=== PATIENT | female | born 2000 | race Caucasian/White ===

== ENCOUNTER 2018-12-17 01:10 | Inpatient (IN) | payer OTHER ==
[2018-12-17 03:08] LABS: RUPTURE FETAL MEMBRANES NEGATIVE (NEGATIVE)
[2018-12-17] MEDS ORDERED: LACTATED RINGER'S 1,000 ML IV (04:26)
[2018-12-17] MEDS ORDERED: BUTORPHANOL 2 MG INJ IV ×2 (04:30)
[2018-12-17] MEDS ORDERED: MISOPROSTOL 200 MCG TAB PR (04:30)
[2018-12-17] MEDS ORDERED: LIDOCAINE 1% (MPF) 30 ML INJ INJ (04:30)
[2018-12-17] MEDS ORDERED: METHYLERGONOVINE 0.2 MG INJ IM (04:30)
[2018-12-17] MEDS ORDERED: CARBOPROST 250 MCG INJ IM (04:30)
[2018-12-17] MEDS ORDERED: IBUPROFEN 600 MG TAB PO (04:30)
[2018-12-17] MEDS ORDERED: OXYTOCIN 30 UNITS/LR 500 ML IV (04:30)
[2018-12-17] MEDS: LACTATED RINGER'S 1,000 ML IV ×4 (05:41→20:59)
[2018-12-17 06:24] LABS: ADD MAN DIFF? NO
[2018-12-17 06:29] LABS: BASOPHILS % 0.3 % (0.0-2.0); EOSINOPHILS # 0.1 10^3/ul (0.0-0.5); EOSINOPHILS % 0.7 % (0.0-7.0); HEMATOCRIT 26.8 % (37.0-47.0); HEMOGLOBIN 8.4 g/dl (12.0-16.0); LYMPHOCYTES # 2.7 10^3/ul (0.8-2.9); LYMPHOCYTES % 27.1 % (18.0-55.0); MEAN CORPUSCULAR HEMOGLOBIN 21.2 pg (29.0-33.0); MEAN CORPUSCULAR HGB CONC 31.3 g/dl (32.0-37.0); MEAN CORPUSCULAR VOLUME 67.5 fl (72.0-104.0); MEAN PLATELET VOLUME 10.8 fl (7.4-10.4); MONOCYTES % 9.6 % (0.0-13.0); NEUTROPHIL # 6.2 10^3/ul (1.6-7.5); NEUTROPHILS % 61.9 % (30.0-74.0); PLATELET COUNT 253 10^3/UL (140-415); RED BLOOD COUNT 3.97 10^6/ul (4.20-5.40); RED CELL DISTRIBUTION WIDTH 16.1 % (11.5-14.5)
[2018-12-17 06:29] LABS: WHITE BLOOD COUNT 10.1 10^3/ul (4.8-10.8)
[2018-12-17 06:48] LABS: INR 0.86; PROTIME 11.8 Sec (11.9-14.9); PT RATIO 0.9
[2018-12-17 06:49] LABS: PARTIAL THROMBOPLASTIN TIME 26.8 Sec (23.0-35.0)
[2018-12-17] MEDS: OXYTOCIN 30 UNITS/LR 500 ML IV (08:09)
[2018-12-17 15:20] LABS: RAPID PLASMA REAGIN NONREACTIVE (NR)
[2018-12-17] MEDS ORDERED: DIPHENHYDRAMINE 50 MG INJ IV (17:30)
[2018-12-17] MEDS ORDERED: NALOXONE (0.4 MG/ML) INJ IV (17:30)
[2018-12-17] MEDS: ONDANSETRON 4 MG INJ IV ×2 (23:10→23:14)
[2018-12-17] MEDS ORDERED: AMPICILLIN 2 GM/NS (PMX) 100 ML (23:22)
[2018-12-17] MEDS ORDERED: CLINDAMYCIN 900 MG/D5W (PMX) 50 ML IVPB (23:43)
[2018-12-17] MEDS: CLINDAMYCIN 900 MG/D5W (PMX) 50 ML IVPB (23:46)
[2018-12-17] MEDS: AMPICILLIN 2 GM/NS (PMX) 100 ML IVPB (23:47)
[2018-12-18] MEDS: GENTAMICIN 80 MG/NS (PMX) 50 ML IVPB (00:33)
[2018-12-18] MEDS: FENTAnyl 2MCG/ML-ROPIV 0.2% 100 ML BAG EPI (00:34)
[2018-12-18] MEDS: ACETAMINOPHEN 500 MG TAB PO ×2 (00:36→09:12)
[2018-12-18] MEDS ORDERED: PHENYLephrine 10 MG INJ (01:53)
[2018-12-18] MEDS ORDERED: MISOPROSTOL 200 MCG TAB (02:20)
[2018-12-18] MEDS ORDERED: FENTAnyl 50 MCG/ML VIAL (02:21)
[2018-12-18] MEDS ORDERED: METOCLOPRAMIDE 10 MG INJ (02:41)
[2018-12-18] MEDS ORDERED: MIDAZOLAM 1 MG/ML 2 ML INJ (02:43)
[2018-12-18] MEDS ORDERED: morphine SULFATE/PF (10 MG/10 ML) INJ (03:11)
[2018-12-18] MEDS: LACTATED RINGER'S 1,000 ML IV (03:15)
[2018-12-18] MEDS ORDERED: MISOPROSTOL 200 MCG TAB PR (03:30)
[2018-12-18] MEDS ORDERED: DIPHENHYDRAMINE 50 MG INJ IV (03:30)
[2018-12-18] MEDS ORDERED: CARBOPROST 250 MCG INJ IM (03:30)
[2018-12-18] MEDS ORDERED: ONDANSETRON 4 MG INJ IV ×2 (03:30)
[2018-12-18] MEDS ORDERED: ACETAMINOPHEN 325 MG TAB PO (03:30)
[2018-12-18] MEDS ORDERED: morphine 2 MG INJ IV (03:30)
[2018-12-18] MEDS ORDERED: BISACODYL 10 MG SUPP PR (03:30)
[2018-12-18] MEDS ORDERED: OXYTOCIN 30 UNITS/LR 500 ML IV (03:30)
[2018-12-18] MEDS ORDERED: LANOLIN HPA 1 PKT TOP (03:30)
[2018-12-18] MEDS ORDERED: IBUPROFEN 600 MG TAB PO (03:30)
[2018-12-18] MEDS ORDERED: NALOXONE (0.4 MG/ML) INJ IV (03:30)
[2018-12-18] MEDS ORDERED: MAGNESIUM HYDROXIDE 30ML CUP PO (03:30)
[2018-12-18] MEDS ORDERED: METHYLERGONOVINE 0.2 MG INJ IM (03:30)
[2018-12-18] MEDS ORDERED: CEFAZOLIN 1 GM/50 ML (PMX) 50 ML IVPB (03:30)
[2018-12-18] MEDS: ACETAMINOPHEN 1000MG/100ML IV 100 ML IVPB (04:34)
[2018-12-18] MEDS: PIPER-TAZO 3.375 GM IV (PMX) 100 ML IVPB ×3 (04:40→17:41)
[2018-12-18] MEDS: KETOROLAC 30 MG INJ IV ×3 (05:15→20:38)
[2018-12-18] MEDS: OXYTOCIN 30 UNITS/LR 500 ML IV ×4 (05:52→23:35)
[2018-12-18] MEDS ORDERED: LIDOCAINE 1.5%/EPI MPF (SDV) 30 ML VIAL (07:00)
[2018-12-18] MEDS ORDERED: OXYTOCIN 30 UNITS/LR 500 ML BAG IV (07:00)
[2018-12-19] MEDS: OXYCODONE/ACETAMINOPHEN (5/325) TAB PO ×4 (04:31→21:41)
[2018-12-19] MEDS: PIPER-TAZO 3.375 GM IV (PMX) 100 ML IVPB ×4 (07:22→17:45)
[2018-12-19 08:23] LABS: ADD MAN DIFF? NO
[2018-12-19 08:28] LABS: ABNORMAL IP MESSAGE 1; BASOPHILS % 0.2 % (0.0-2.0); EOSINOPHILS # 0.1 10^3/ul (0.0-0.5); EOSINOPHILS % 0.3 % (0.0-7.0); HEMATOCRIT 20.3 % (37.0-47.0); LYMPHOCYTES # 1.8 10^3/ul (0.8-2.9); LYMPHOCYTES % 7.7 % (18.0-55.0); MEAN CORPUSCULAR HEMOGLOBIN 20.7 pg (29.0-33.0); MEAN CORPUSCULAR VOLUME 66.6 fl (72.0-104.0); MEAN PLATELET VOLUME 11.2 fl (7.4-10.4); MONOCYTE # 1.6 10^3/ul (0.3-0.9); MONOCYTES % 6.6 % (0.0-13.0); NEUTROPHIL # 20.1 10^3/ul (1.6-7.5); NEUTROPHILS % 84.2 % (30.0-74.0); PLATELET COUNT 226 10^3/UL (140-415); RED BLOOD COUNT 3.05 10^6/ul (4.20-5.40); RED CELL DISTRIBUTION WIDTH 16.9 % (11.5-14.5)
[2018-12-19 08:28] LABS: WHITE BLOOD COUNT 23.8 10^3/ul (4.8-10.8)
[2018-12-19 08:33] LABS: POSITIVE DIFF @See below
[2018-12-19 08:35] LABS: HEMOGLOBIN 6.3 g/dl (12.0-16.0)
[2018-12-19 08:36] LABS: PATH REVIEW? YES
[2018-12-19 08:58] LABS: ALANINE AMINOTRANSFERASE 64 IU/L (13-69); ALBUMIN 2.2 g/dl (3.3-4.9); ALBUMIN/GLOBULIN RATIO 0.78; ALKALINE PHOSPHATASE 203 IU/L (42-121); ANION GAP 3 (5-13); ASPARTATE AMINO TRANSFERASE 194 IU/L (15-46); BILIRUBIN,INDIRECT 0.3 mg/dl (0-1.1); BILIRUBIN,TOTAL 0.3 mg/dl (0.2-1.3); BLOOD UREA NITROGEN 8 mg/dl (7-20); CALCIUM 8.3 mg/dl (8.4-10.2); CARBON DIOXIDE 25 mmol/L (21-31); CHLORIDE 106 mmol/L (97-110); CREATININE 0.58 mg/dl (0.44-1.00); Estimated GFR > 60 mL/min (>60); GLUCOSE 109 mg/dl (70-220); POTASSIUM 3.8 mmol/L (3.5-5.1); SODIUM 134 mmol/L (135-144)
[2018-12-19 10:29] LABS: ANISOCYTOSIS 3+ (0-0); BAND NEUTROPHILS #M 3.5 10^3/ul (0.0-0.6); BAND NEUTROPHILS % (M) 15 % (0-10); HYPOCHROMASIA 1+ (0-0); LYMPHOCYTES #M 1.1 10^3/ul (0.8-2.9); LYMPHOCYTES % (M) 5 % (18-55); MICROCYTOSIS 3+ (0-0); MONOCYTE #M 0.4 10^3/ul (0.3-0.9); MONOCYTES % (M) 2 % (0-13); OVALOCYTES 1+ (0-0); PLATELET ESTIMATE NORMAL; POIKILOCYTOSIS 1+ (0-0); POLYCHROMASIA 3+ (0-0); SEG NEUT #M 19.4 10^3/ul (1.6-7.5); SEGMENTED NEUTROPHILS (M) % 78 % (30-74); SMUDGE%M 5 % (0-0)
[2018-12-19] MEDS: IBUPROFEN 600 MG TAB PO (10:32)
[2018-12-19] MEDS: FERROUS SULFATE (EC) 325 MG TAB PO ×2 (12:36→21:41)
[2018-12-20] MEDS: PIPER-TAZO 3.375 GM IV (PMX) 100 ML IVPB ×5 (01:09→23:42)
[2018-12-20] MEDS: OXYCODONE/ACETAMINOPHEN (5/325) TAB PO ×2 (06:05→13:53)
[2018-12-20 07:40] LABS: ADD MAN DIFF? NO
[2018-12-20 07:46] LABS: ABNORMAL IP MESSAGE 1; BASOPHILS % 0.1 % (0.0-2.0); EOSINOPHILS # 0.2 10^3/ul (0.0-0.5); HEMATOCRIT 22.7 % (37.0-47.0); LYMPHOCYTES # 3.1 10^3/ul (0.8-2.9); LYMPHOCYTES % 18.9 % (18.0-55.0); MEAN CORPUSCULAR HEMOGLOBIN 20.7 pg (29.0-33.0); MEAN CORPUSCULAR VOLUME 69.2 fl (72.0-104.0); MONOCYTE # 0.9 10^3/ul (0.3-0.9); MONOCYTES % 5.5 % (0.0-13.0); NEUTROPHILS % 73.8 % (30.0-74.0); PLATELET COUNT 279 10^3/UL (140-415); RED BLOOD COUNT 3.28 10^6/ul (4.20-5.40); RED CELL DISTRIBUTION WIDTH 17.2 % (11.5-14.5)
[2018-12-20 07:46] LABS: WHITE BLOOD COUNT 16.3 10^3/ul (4.8-10.8)
[2018-12-20 07:53] LABS: HEMOGLOBIN 6.8 g/dl (12.0-16.0); POSITIVE DIFF @See below
[2018-12-20] MEDS: FERROUS SULFATE (EC) 325 MG TAB PO ×3 (09:03→20:25)
[2018-12-20] MEDS: IBUPROFEN 600 MG TAB PO ×3 (12:25→23:42)
[2018-12-20] MEDS: SENNA/DOCUSATE NA (8.6MG/50MG) TAB PO (20:26)
[2018-12-21] MEDS: OXYCODONE/ACETAMINOPHEN (5/325) TAB PO (01:24)
[2018-12-21] MEDS: PIPER-TAZO 3.375 GM IV (PMX) 100 ML IVPB ×2 (06:17→12:18)
[2018-12-21] MEDS: IBUPROFEN 600 MG TAB PO ×2 (06:27→12:18)
[2018-12-21] MEDS: FERROUS SULFATE (EC) 325 MG TAB PO ×3 (09:35→12:18)
== END 2018-12-21 16:00 | disposition home or self-care (01) | DRG 786 ==
LOC: OBT 01:10 → L-D 12-18 01:44 → PP1 12-18 06:03 → OBT 04:20 → L-D 04:20
PROVIDERS: Specialist
PROC: 10D00Z1 Extraction of Products of Conception, Low, Open Approach (ICD-10-PCS; principal; 2018-12-18)
DX: O76 Abnormality in fetal heart rate and rhythm complicating labor and delivery (principal); O41.1230 Chorioamnionitis, third trimester, not applicable or unspecified; D64.9 Anemia, unspecified; O99.02 Anemia complicating childbirth; Z3A.40 40 weeks gestation of pregnancy; Z37.0 Single live birth
CPT/HCPCS: 62322; 76815; 80053; 84112; 85025; 85610; 85730; 86592; 86850; 86900; 86901; 87040-91; 87070; 87086; 88307; 99464